=== PATIENT | female | born 1950 | race Caucasian/White ===

== ENCOUNTER 2016-08-14 08:30 | Emergency (ER) | payer OTHER, BC ==
[~2016-08-14] VITALS: Ht 162.6 cm; Wt 67.5 kg
[2016-08-14 08:41] VITALS: TEMP 36.6; O2SAT 96; Ht 162.6 cm; Wt 67.5 kg
[2016-08-14] MEDS ORDERED: OLME1TAB11 PO (09:42)
[2016-08-14] MEDS ORDERED: AMT50 PO (09:42)
[2016-08-14] MEDS ORDERED: OMEP40CA41 PO (09:42)
[2016-08-14] MEDS ORDERED: LIDOCAINE/EPINEPH/TETRACAINE 1 EA SYR EXT STA (09:47)
--- NOTE | 2016-08-14 10:29 | DIAGNOSTIC IMAGING REPORT ---
RIGHT WRIST MIN 3 VIEWS ROUTINE CLINICAL HISTORY: Right wrist pain TRAUMA COMPARISON: None. DISCUSSION: The bones are mildly osteopenic. There is an age-indeterminate pisiform fracture. Please correlate with the patient's site of pain. No additional fractures or dislocations are visualized. Degenerative changes are present the level the first metacarpal phalangeal joint. IMPRESSION: Age-indeterminate pisiform fracture. Please correlate with the patient's site of pain. Electronically signed by: John Alicea M.D. 08/14/2016 10:28 AM Dictated Date/Time: 08/14/2016 10:26 AM
[2016-08-14 10:31] VITALS: PULSE 56
[2016-08-14] MEDS ORDERED: AMOX875T PO (11:19)
--- NOTE | 2016-08-14 11:21 | EMERGENCY ROOM VISIT NOTE ---
History Report prepared by Marcie: Dani Cuellar Under the Supervision of: Dr. Roland Vilalgomez D.O. First contact with patient: 09:42 Chief Complaint: FALL Stated Complaint: FACIAL INJURIES FROM A FALL-WORK RELATED INJURY History of Present Illness The patient is a 66 year old female who presents to the Emergency Room with complaints of a mechanical fall that occurred prior to arrival this morning. Per the patient's friend, the patient was walking over a hill before coming into work at [employer], and tripped over a curb and fell. The patient states that she caught herself with her right wrist, but does not think anything is broken. She says that she has abrasions on her face and upper lip from the fall. She states that her bottom lip hurts and she felt a bit lightheaded after the fall. The patient notes that she was in a hurry when she fell. She denies any loss of consciousness. Source of History: patient, friend Onset: Prior to arrival this morning Position: other (global - fall) Quality: other (mechanical) Associated Symptoms: No LOC Note: Associated symptoms: Abrasions on face from fall, bottom lip pain. Caught her fall with her right wrist, but does not think anything is broken. A bit lightheaded after fall. Review of Systems See HPI for pertinent positives & negatives. A total of 10 systems reviewed and were otherwise negative. Past Medical & Surgical Medical Problems: (1) No chronic problems No pertinent past medical history Family History No pertinent family history Social History Smoking Status: Never Smoker Marital Status: single Occupation Status: employed Current/Historical Medications Scheduled Amitriptyline Hcl (Elavil), 10 MG PO HS Amoxicillin & Pot Clavulanate (Augmentin 875-125 mg), 875 MG PO BID Olmesartan Medoxomil (Benicar), 20 MG PO QPM Omeprazole (Prilosec), 40 MG PO HS Allergies Coded Allergies: No Known Allergies (Unverified , 08/14/16) Physical Exam Vital Signs Date Time Temp Pulse Resp B/P Pulse Ox O2 Delivery O2 Flow Rate FiO2 08/14/16 08:41 36.6 54 18 107/57 96 Room Air Physical Exam CONSTITUTIONAL/VITAL SIGNS: Reviewed / noted above. GENERAL: Non-toxic in appearance. INTEGUMENTARY: Warm, dry, and [place]. HEAD: 2.5 cm laceration to the mid-lower lip involving the lip and mucosal surface. Abrasion to the nose and upper lip. EYES: without scleral icterus or trauma. ENT/OROPHARYNX: clear and moist. LYMPHADENOPATHY/NECK: Is supple without lymphadenopathy or meningismus. RESPIRATORY: Lungs clear and equal. CARDIOVASCULAR: Regular rate and rhythm. GI/ABDOMEN: Soft and nontender. No organomegaly or pulsatile mass. No rebound or guarding. Normal bowel sounds. EXTREMITIES: Abrasion to bilateral hands and bilateral knees, tenderness to palpation of the right ulnar wrist region. BACK: No CVA tenderness. NEUROLOGICAL: Intact without focal deficits. GCS of 15. PSYCHIATRIC: normal affect. MUSCULOSKELETAL: Normally developed with good muscle tone. Medical Decision & Procedures ER Provider Diagnostic Interpretation: X ray results and stated below per my interpretation and radiology interpretation. RIGHT WRIST MIN 3 VIEWS ROUTINE CLINICAL HISTORY: Right wrist pain TRAUMA COMPARISON: None. DISCUSSION: The bones are mildly osteopenic. There is an age-indeterminate pisiform fracture. Please correlate with the patient's site of pain. No additional fractures or dislocations are visualized. Degenerative changes are present the level the first metacarpal phalangeal joint. IMPRESSION: Age-indeterminate pisiform fracture. Please correlate with the patient's site of pain. Electronically signed by: John Alicea M.D. 08/14/2016 10:28 AM Dictated Date/Time: 08/14/2016 10:26 AM Medications Administered Medications (Trade) Dose Ordered Sig/Renée Route Start Time Stop Time Status Last Admin Dose Admin Tetracaine/ Epinephrine/ Lidocaine (L.e.t. Gel 4%/ 1:100/0.5%) 1 ea NOW STAT EXT 08/14/16 09:47 08/14/16 09:49 DC 08/14/16 10:07 1 EA Procedure Location: Lower lip Total length: 2.5 cm Complexity: Simple Verbal consent was obtained after the risks and benefits were explained, including but not limited to bleeding, scarring, infection, pain, and bone/joint /nerve damage. At this time, the risks of the procedure are less than the risks of NOT performing the procedure. A time out was taken and the correct patient and site identified. The skin was prepped with betadine. The target area was anesthetized with topical L.e.t. gel. The skin was re-prepped with betadine and a sterile field set. The wound was explored for foreign bodies and none found. Examination revealed no injury to deep structures such as tendons, bone, or significant blood vessels. Debridement was not performed. The wound edges were approximated using 4, 6.0 absorbable sutures. Hemostasis and excellent approximation was achieved. Antibacterial ointment and a sterile dressing applied. Detailed wound care instructions and signs and symptoms of infection reviewed with the patient. No complications and the patient tolerated the procedure well. ED Course 0943: Previous medical records were reviewed. The patient was evaluated in room B8. A complete history and physical examination was performed. 0947: Ordered L.e.t. Gel 4%/1:100/0.5% 1 ea EXT. 1113: On reevaluation, the patient is resting comfortably. I discussed the results and findings with the patient. She verbalized agreement of the treatment plan. She will be discharged home. 1130: Ordered Augmentin Tab 875 mg PO. Medical Decision Differential includes close head injury, intracranial bleed, facial trauma, cervical spine trauma, chest and thoracic trauma, abdominal and intra-abdominal trauma, spine neurologic trauma, extremity trauma. Medication Reconciliation: I attest that I have personally reviewed the patient' s current medication list. Blood pressure Screening: Patient was found to have normal blood pressure on screening and does not require follow-up. This is a 66-year-old female who presents to the ED with a chief complaint of a fall. Details listed above. The patient tripped and fell onto her face. She reached out to protect herself with her arms. She suffered some abrasions to the face, laceration lower lip, abrasions to the knees. She complains of some discomfort in the right ulnar wrist region. An x-ray of that area reveals a fracture of the pisiform bone. The laceration of the lip was repaired with 4- 6.0 sutures. Good approximation. The patient was given a dose of Augmentin. She was given a wrist splint. The patient is being discharged on Augmentin. She will use the wrist splint for 4 weeks. She will follow-up with her doctor in 1 week. Impression Primary Impression: Fall Additional Impressions: Multiple abrasions Laceration of lower lip Left wrist fracture Scribe Attestation The scribe's documentation has been prepared under my direction and personally reviewed by me in its entirety. I confirm that the note above accurately reflects all work, treatment, procedures, and medical decision making performed by me. Departure Information Dispostion Home / Self-Care Prescriptions Amoxicillin & Pot Clavulanate (Augmentin 875-125 mg) 1 Tab Tab 875 MG PO BID, #14 TAB Prov: Roland Villagomez D.O. 08/14/16 Referrals No Doctor, Assigned (PCP) Patient Instructions My [facility] Additional Instructions Augmentin as prescribed. Sutures will fall out and dissolve. There is a small bone broken in your wrist. Use wrist splint for up to 4 weeks while healing. Avoid activities that may cause additional pain or injury to the wrist. Take Tylenol / Motrin for pain. Follow-up with your doctor for further evaluation of your symptoms in 1 week. Problem Qualifiers
[2016-08-14] MEDS ORDERED: AMOXICILLIN/CLAVULANATE TAB 875 MG TAB PO ONE (11:30)
[2016-08-14 12:04] VITALS: BP 112/68
== END 2016-08-14 12:11 | disposition home or self-care (01) ==
LOC: C.EDB 08:32
DX: S00.31XA Abrasion of nose, initial encounter (principal); S00.511A Abrasion of lip, initial encounter; S60.511A Abrasion of right hand, initial encounter; S60.512A Abrasion of left hand, initial encounter; S80.211A Abrasion, right knee, initial encounter; S80.212A Abrasion, left knee, initial encounter; S01.511A Laceration without foreign body of lip, initial encounter; S62.161A Displaced fracture of pisiform, right wrist, initial encounter for closed fracture; W01.0XXA Fall on same level from slipping, tripping and stumbling without subsequent striking against object, initial encounter; Y99.0 Civilian activity done for income or pay